=== PATIENT | male | born 1945 | race African-American/Black ===

== ENCOUNTER 2019-12-04 09:03 | Inpatient (IN) ==
--- NOTE | 2019-12-01 09:37 | EKG Report ---
Test Performed on : 12/01/2019 09:32:07 AM Test Reason : PAT Blood Pressure : / mmHG Vent. Rate : 088 BPM Atrial Rate : 088 BPM P-R Int : 146 ms QRS Dur : 076 ms QT Int : 338 ms P-R-T Axes : 049 -04 -09 degrees QTc Int : 408 ms Normal sinus rhythm. Normal ECG No previous ECGs available Confirmed by Byron Koo MD ([id number]) on 12/01/2019 6:02:40 PM
[2019-12-01 09:54] LABS: BASO# 0.05 X1000 (0.0-0.2); BASO% 0.6 % (0.0-0.8); EOS% 4.5 % (0.0-10.0); HEMATOCRIT 43.2 % (42.0-52.0); HEMOGLOBIN 13.5 g/dL (14.0-18.0); IMM GRAN# 0.06 X1000 (0.0-0.04); IMM GRAN% 0.7 % (0.0-0.5); LYMPH# 1.54 X1000 (1.2-3.4); LYMPH% 17.5 % (20.5-51.1); MCH 29.8 PG (27-31); MCHC 31.3 g/dL (33-37); MCV 95.4 FL (81-99); MONO# 0.51 X1000 (0.11-0.59); MONO% 5.8 % (1.7-9.3); MPV 10.1 FL (7.4-10.4); NEUT# 6.24 X1000 (1.4-6.5); NEUT% 70.9 % (42.2-75.2); PLT 305 X1000 (130-400); RBC 4.53 XMIL (4.7-6.1); RDW 14.1 % (11.5-14.5)
[2019-12-01 10:00] LABS: HEMOGLOBIN A1C 5.6 % (4.8-6.0)
[2019-12-01 10:47] LABS: AGAP 16; BUN 20 mg/dL (8-22); CALCIUM 10.5 mg/dL (8.8-10.2); CHLORIDE 103 mmol/L (98-107); COSMO 280; CREATININE 1.3 mg/dL (0.7-1.2); ESTIMATED GFR > 60; GLUCOSE 102 mg/dL (70-104); POTASSIUM 4.8 mmol/L (3.5-5.1); SODIUM 139 mmol/L (136-145); TCO2 20 mmol/L (25-35)
[2019-12-04] MEDS ORDERED: LR 1,000 ML ONE (09:24)
[2019-12-04] MEDS ORDERED: KEFZOL 1 GM/D5W 2 GM/100 ML IVPB ONE (09:24)
[2019-12-04] MEDS ORDERED: DIPRIVAN 1% ONE ×2 (10:12→11:16)
[2019-12-04] MEDS ORDERED: XYLOCAINE-MPF 2% ONE (10:13)
[2019-12-04] MEDS ORDERED: EPHEDRINE ONE (11:08)
[2019-12-04] MEDS ORDERED: FENTANYL ONE ×2 (12:15→12:36)
[2019-12-04] MEDS ORDERED: OFIRMEV 1000 MG/ISOTONIC SOLN 1,000 MG/100 ML BOTTLE ONE (12:31)
[2019-12-04] MEDS ORDERED: ZOFRAN ONE (12:56)
[2019-12-04] MEDS ORDERED: SENOKOT PO PRN (13:11)
[2019-12-04] MEDS ORDERED: MORPHINE IV PRN (13:11)
[2019-12-04] MEDS ORDERED: ZOFRAN IV PRN (13:11)
[2019-12-04] MEDS ORDERED: OXY IR PO PRN (13:11)
[2019-12-04] MEDS: DILAUDID ONE ×9 (13:31→15:41)
[2019-12-04] MEDS: OXY IR ONE (13:41)
--- NOTE | 2019-12-04 14:38 | OPERATIVE NOTE ---
PROCEDURE DATE: 12/04/2019 PREOPERATIVE DIAGNOSES: 1. Right subtalar dislocation. 2. 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 POSTOPERATIVE DIAGNOSES: 1. Right subtalar dislocation. 2. 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 PROCEDURE: 1. Right subtalar fusion. 2. Right multiple midfoot fusions. SURGEON: Dr. Kris Alicea ARSON INVESTIGATOR: Rosalinda Holland, nurse practitioner, who was an integral part of the case helping with all aspects of the case, helping increase our OR efficiency greatly. ANESTHESIA: General with LMA. TOURNIQUET TIME: Right around 2 hours. IMPLANTS: 1. Sionex 6.5 cannulated screws x3. 2. Sionex noncannulated bolts. DISPOSITION: To PACU, hemodynamically stable. INDICATION FOR PROCEDURE: Mr. Sanchez is a 74-year-old male who presented to my clinic recently with a chronically subluxed versus dislocated subtalar joint secondary to Charcot neuroarthropathy. I discussed with him by the position of his foot and his being at risk for ulceration we discussed performing surgical intervention. I went over with him about everything and he expressed understanding and wished to proceed. PROCEDURE: Mr. Sanchez was identified in the preoperative holding area. The right foot was marked as the correct surgical site. He was then wheeled to the operating room, placed supine on the operating table. All bony prominences were well padded. He was induced under general anesthesia. LMA was placed. Tourniquet was placed to the right thigh. Right lower extremity then prepped with chlorhexidine, gluconate scrub and then ChloraPrep, and draped in normal sterile fashion. Surgical pause was performed. We identified the correct patient, correct side, and the correct procedure. Preop antibiotics were given. Esmarch was used to exsanguinate the right lower extremity and tourniquet was inflated to 300 mmHg. We started with a sinus tarsi approach to the subtalar joint. Dissection was carried down just distal to the peroneal tendons. We easily identified the subtalar joint which was extremely synovitic and a lot of chondromalacia that was there. I denuded all the cartilage that was there and then drilled and then used osteotome to break apart the subchondral bone. I then made an incision medially from the first TMT joint back to the head of the talus. Dissection was carried down. I did not take down the tibialis anterior tendon. We went around it. We exposed the first TMT joint, MC joint and the TN joint. I used a Hintermann distractor and lamina ergonomics technician to spread those joints and was able to denude all the cartilage from each 1. We then drilled everything and I used the osteotome to break it apart so that we had nice raw bleeding bone edges opposed to each other. After we had prepared all our joints I then was able to get 2 guidewires in the calcaneus and then I reduced the subtalar joint first and got the talus back on top and then I pinned across that subtalar joint into the talus. We confirmed that everything was nice and aligned with fluoroscopic imaging. I then put two 6.5 headless compression screws in and really closed down that subtalar joint and fused it in really well. He had really good stability after that and fluoroscopic imaging showed that we had really good position even on the [place] heel view. I then turned my attention to the forefoot and made an incision over the great toe and the 2nd toe. I dissected down to the MTP joint. I then placed a wire from the first metatarsal head all the way back to the neck of the talus. I then placed another wire from the 2nd metatarsal head back into the neck of the talus as well. I was then able to get a solid screw in both the medial column and that 2nd metatarsal column as well and that stabilized things extremely well. I had good compression. I did put a little bit of bone graft and demineralized bone matrix at that medial site at the navicular to fill in just a few of those gaps that were there since the head of the talus was very deformed. I then placed 1 more screw from the posterior aspect of the calcaneus into the 2nd metatarsal base and 3rd metatarsal base area. Overall the clinical position of the foot looked really good. All the hardware looked to be in good position on fluoroscopic imaging. I was then able to close everything in a layered fashion, 0 Vicryl for the deep layer, 2-0 Vicryl for the subcutaneous and nylon on the skin. Adaptic, 4x4s, ABD, soft roll, posterior splint was applied. Tourniquet was let down. Patient had good capillary refill return to the toes. He was then wheeled from general anesthesia, moved to his own bed and taken to the PACU in stable condition. PLAN: Postoperatively, he will be nonweightbearing to the right lower extremity. He will be admitted and I will also check on him in the morning. cc: Kris Alicea MD
[2019-12-04] MEDS: KEFZOL 1 GM/D5W 1 GM/50 ML IVPB IV SCH ×2 (15:23→20:23)
[2019-12-04] MEDS: BENADRYL PO PRN ×2 (18:39→22:59)
[2019-12-04] MEDS: DILAUDID IV PRN ×2 (18:40→22:58)
[2019-12-04] MEDS: OXY IR PO PRN (20:24)
[2019-12-05] MEDS: OXY IR PO PRN ×4 (00:49→21:05)
[2019-12-05] MEDS: DILAUDID IV PRN ×6 (02:11→23:19)
[2019-12-05] MEDS: KEFZOL 1 GM/D5W 1 GM/50 ML IVPB IV SCH (04:37)
[2019-12-05] MEDS: LOVENOX SUBQ SCH ×2 (04:37→06:46)
--- NOTE | 2019-12-05 07:22 | ORTHOPAEDICS PROGRESS NOTE ---
DATE: 12/05/2019 SUBJECTIVE: Mr. Sanchez is lying in bed this morning. Overall, he seems to be doing okay. He is not in a lot of pain this morning. OBJECTIVE: Right lower extremity exam: His splint is clean, dry, and intact. He is able to move his toes up and down. He does have good sensation to the toes. That was his preop baseline. ASSESSMENT: Status post right Charcot midfoot and hindfoot reconstruction. PLAN: I think Mr. Sanchez is doing great. Internal Grinder to be involved in discharge planning. More than likely, he will be here over the weekend, and we can look at discharge on Sunday morning. He is nonweightbearing right lower extremity. He will need to get up to the bedside 3 times a day for his meals. cc: Kris Alicea MD
--- NOTE | 2019-12-05 16:33 | Diag Imaging Result Doc PS360 ---
CHEST-1 VIEW - 12/05/2019 INDICATION: rehab placement COMPARISON: None FINDINGS: There are large, benign calcified granulomas in the left lung base, and left hilum. Lung volumes are severely low. No infiltrates or edema. Heart size and pulmonary vascularity is normal. IMPRESSION: No acute disease. Electronically signed by Doug Mann 12/05/2019 4:31 PM
[2019-12-05] MEDS: OXY IR ONE (22:11)
[2019-12-05] MEDS: DILAUDID ONE (22:11)
[2019-12-06] MEDS: OXY IR PO PRN ×3 (01:40→13:42)
[2019-12-06] MEDS: DILAUDID IV PRN ×6 (03:34→21:59)
[2019-12-06] MEDS: LOVENOX SUBQ SCH (05:05)
[2019-12-06] MEDS: BENADRYL PO PRN (14:25)
[2019-12-07] MEDS: DILAUDID IV PRN ×6 (00:40→21:47)
[2019-12-07] MEDS: LOVENOX SUBQ SCH (05:23)
[2019-12-07] MEDS: OXY IR PO PRN ×4 (05:23→19:42)
[2019-12-07] MEDS: BENADRYL PO PRN ×2 (10:29→21:47)
[2019-12-08] MEDS: DILAUDID IV PRN ×5 (00:44→16:53)
[2019-12-08] MEDS ORDERED: VENTOLIN HFA INH PRN (02:23)
[2019-12-08] MEDS: OXY IR PO PRN ×4 (03:18→22:22)
[2019-12-08] MEDS: BENADRYL PO PRN (03:19)
[2019-12-08] MEDS: LOVENOX SUBQ SCH ×2 (04:02→06:41)
[2019-12-08] MEDS: WELLBUTRIN XL PO SCH ×2 (10:22→22:25)
[2019-12-08] MEDS: RAZADYNE PO SCH ×2 (10:22→22:24)
[2019-12-08] MEDS: NORVASC PO SCH (10:23)
[2019-12-08] MEDS: ASPIRIN PO SCH (10:23)
[2019-12-08] MEDS: MIRAPEX PO SCH ×3 (10:23→22:23)
[2019-12-08] MEDS: DYAZIDE PO SCH (10:23)
[2019-12-08] MEDS: LYRICA PO SCH ×2 (10:23→22:23)
[2019-12-08] MEDS: FLOMAX PO SCH (10:24)
[2019-12-08] MEDS: SENOKOT PO SCH ×2 (10:24→22:25)
[2019-12-08] MEDS: ZYLOPRIM PO SCH (10:24)
[2019-12-08] MEDS: FERROUS SULFATE PO SCH (10:24)
[2019-12-08] MEDS: PERIDEX MT SCH ×2 (10:24→22:23)
[2019-12-08] MEDS: PROTONIX PO SCH ×2 (10:24→22:24)
[2019-12-08] MEDS: FOLIC ACID PO SCH (10:24)
[2019-12-09] MEDS: DILAUDID IV PRN ×4 (06:26→21:00)
[2019-12-09] MEDS: LOVENOX SUBQ SCH (06:26)
[2019-12-09] MEDS: RAZADYNE PO SCH ×2 (10:46→20:59)
[2019-12-09] MEDS: PERIDEX MT SCH ×3 (10:46→21:09)
[2019-12-09] MEDS: DYAZIDE PO SCH (10:47)
[2019-12-09] MEDS: FERROUS SULFATE PO SCH (10:47)
[2019-12-09] MEDS: FOLIC ACID PO SCH (10:47)
[2019-12-09] MEDS: ZYLOPRIM PO SCH (10:47)
[2019-12-09] MEDS: NORVASC PO SCH (10:48)
[2019-12-09] MEDS: SENOKOT PO SCH ×2 (10:48→21:00)
[2019-12-09] MEDS: ASPIRIN PO SCH (10:48)
[2019-12-09] MEDS: PROTONIX PO SCH ×2 (10:48→21:00)
[2019-12-09] MEDS: WELLBUTRIN XL PO SCH ×2 (10:48→20:59)
[2019-12-09] MEDS: LYRICA PO SCH ×2 (10:48→20:59)
[2019-12-09] MEDS: MIRAPEX PO SCH ×3 (10:48→20:59)
[2019-12-09] MEDS: FLOMAX PO SCH (10:50)
[2019-12-09] MEDS: OXY IR PO PRN ×2 (10:58→22:50)
--- NOTE | 2019-12-09 14:16 | ORTHOPAEDICS PROGRESS NOTE ---
DATE: 12/09/2019 SUBJECTIVE: Mr. Sanchez is day 5 status post Charcot midfoot and hindfoot reconstruction. He is lying in bed and complains of pain at this time. Overall, he seems to be doing well. His splint is still in place to his right lower extremity. OBJECTIVE: Mr. Sanchez' splint to his right lower leg is clean, dry, and intact. He is able to wiggle his toes. He does have full sensation to his toes. His capillary refill is less than 2 seconds. ASSESSMENT: Status post right Charcot mid and hindfoot reconstruction. PLAN: Mr. Sanchez seems to be doing well. director of environmental services is involved and is looking for rehab placement at this time. Upon receiving a bed, he will be stable for discharge. He needs to continue to be nonweightbearing on his right lower extremity. However, he does need to get up to the bedside at least 3 times a day for his meals. Dictated by HANS Dejesus for Kris Alicea MD cc: Kris Alicea MD MTDD
[2019-12-10] MEDS: DILAUDID IV PRN ×4 (01:35→22:47)
[2019-12-10] MEDS: BENADRYL PO PRN ×2 (01:36→22:48)
[2019-12-10] MEDS: OXY IR PO PRN ×3 (03:56→15:36)
--- NOTE | 2019-12-10 07:25 | ORTHOPAEDICS PROGRESS NOTE ---
DATE: 12/10/2019 SUBJECTIVE: Mr. Sanchez is lying in bed this morning. Overall, he is feeling okay. OBJECTIVE: Right lower extremity exam, his splint is clean, dry, and intact. He is moving the toes well. He has good capillary refill to all the toes. He has numbness to the toes, which is his baseline. ASSESSMENT: Status post right hindfoot and midfoot Charcot reconstruction. PLAN: Mr. Sanchez should be discharged to [facility] today. It sounds like everything is getting set up. He will need to see me in about a week in clinic. He will remain nonweightbearing to the right lower extremity. cc: Kris Alicea MD
[2019-12-10] MEDS ORDERED: CALMOSEPTINE OINTMENT TOP PRN (07:38)
[2019-12-10] MEDS: RAZADYNE PO SCH ×2 (08:21→22:49)
[2019-12-10] MEDS: DYAZIDE PO SCH (08:22)
[2019-12-10] MEDS: LEXAPRO PO SCH (08:22)
[2019-12-10] MEDS: FLOMAX PO SCH (08:23)
[2019-12-10] MEDS: ZYLOPRIM PO SCH (08:23)
[2019-12-10] MEDS: MIRAPEX PO SCH ×3 (08:23→22:49)
[2019-12-10] MEDS: NORVASC PO SCH (08:23)
[2019-12-10] MEDS: FOLIC ACID PO SCH (08:24)
[2019-12-10] MEDS: SENOKOT PO SCH ×2 (08:24→22:49)
[2019-12-10] MEDS: WELLBUTRIN XL PO SCH ×2 (08:24→22:49)
[2019-12-10] MEDS: ASPIRIN PO SCH (08:24)
[2019-12-10] MEDS: PERIDEX MT SCH ×2 (08:24→22:49)
[2019-12-10] MEDS: FERROUS SULFATE PO SCH (08:24)
[2019-12-10] MEDS: PROTONIX PO SCH ×2 (08:25→22:49)
[2019-12-10] MEDS: LYRICA PO SCH ×2 (08:32→22:48)
[2019-12-10] MEDS: LOVENOX SUBQ SCH (09:16)
[2019-12-10] MEDS: LOTRIMIN 1% CREAM TOP SCH ×2 (09:16→22:50)
[2019-12-11] MEDS: BENADRYL PO PRN (02:21)
[2019-12-11] MEDS: DILAUDID IV PRN ×3 (02:21→11:06)
[2019-12-11] MEDS: OXY IR PO PRN ×2 (03:53→13:22)
[2019-12-11] MEDS: WELLBUTRIN XL PO SCH (08:26)
[2019-12-11] MEDS: FLOMAX PO SCH (08:26)
[2019-12-11] MEDS: LYRICA PO SCH (08:26)
[2019-12-11] MEDS: NORVASC PO SCH (08:26)
[2019-12-11] MEDS: MIRAPEX PO SCH (08:27)
[2019-12-11] MEDS: LOVENOX SUBQ SCH (08:27)
[2019-12-11] MEDS: DYAZIDE PO SCH (08:27)
[2019-12-11] MEDS: PROTONIX PO SCH (08:27)
[2019-12-11] MEDS: ZYLOPRIM PO SCH (08:27)
[2019-12-11] MEDS: ASPIRIN PO SCH (08:27)
[2019-12-11] MEDS: PERIDEX MT SCH (08:27)
[2019-12-11] MEDS: SENOKOT PO SCH (08:27)
[2019-12-11] MEDS: RAZADYNE PO SCH (08:27)
[2019-12-11] MEDS: FOLIC ACID PO SCH (08:27)
[2019-12-11] MEDS: FERROUS SULFATE PO SCH (08:27)
[2019-12-11] MEDS: LEXAPRO PO SCH ×3 (08:27→10:03)
[2019-12-11] MEDS: LOTRIMIN 1% CREAM TOP SCH (09:39)
[2019-12-11 11:31] VITALS: BP 114/65
--- NOTE | 2019-12-12 00:09 | DISCHARGE SUMMARY ---
ADMISSION DATE: 12/04/2019 DISCHARGE DATE: 12/11/2019 ADMITTING DIAGNOSES: 1. Right subtalar dislocation. 2. Right Charcot neuropathy. 3. Type 2 diabetes mellitus with peripheral neuropathy. DISCHARGE DIAGNOSES: 1. Right subtalar dislocation. 2. Right Charcot neuropathy. 3. Type 2 diabetes mellitus with peripheral neuropathy. PROCEDURES: On 12/04/2019, Dr. Alicea performed a right subtalar fusion with multiple midfoot fusions. HOSPITAL COURSE: Mr. Sanchez is a 74-year-old male who presented to Dr. Alicea's clinic with a chronically subluxed versus dislocated subtalar joint secondary to Charcot neuropathy. Dr. Alicea discussed with him the position of the foot and that he was at high risk for ulceration. They began discussing surgical intervention. Mr. Sanchez saw his primary care provider and kind of got a preoperative workup done. He was approved for surgery and he and his family wished to proceed with surgical intervention. He was taken to the operating room on 12/04/2019. Satisfactory anesthesia was obtained and he tolerated the procedure well. He was transferred to the recovery room. After a satisfactory recovery, he was transferred to [address] [place] [address]. He has had a pretty uneventful postoperative course. He has had trouble mobilizing postoperatively. He is nonweightbearing to the right lower extremity. They have been following his sugars, which have been controlled. There is some discussion of him going to a rehab to continue to work on physical therapy mobilization. However, it looks like the plan is for him to go home with home health now. He does have a good supportive family who is in the area. At this time, he is ready for discharge. VITAL SIGNS: Temperature is 98.5 degrees, pulse is 79, respirations 16, blood pressure 114/65. He is 95% on room air. DISCHARGE MEDICATIONS: Ventolin 2 puffs every 4 to 6 hours as needed, Allopurinol 300 mg p.o. daily, Norvasc 10 mg p.o. daily, aspirin 325 mg twice a day, Wellbutrin 150 mg p.o. b.i.d., Lexapro 10 mg p.o. daily, folic acid 1 mg p.o. daily, Razadyne 12 mg p.o. b.i.d., Protonix 40 mg p.o. b.i.d., Lyrica 100 mg p.o. b.i.d., Mirapex 0.5 mg p.o. t.i.d., Flomax 0.4 mg p.o. daily, Senokot 1 p.o. b.i.d., Dyazide 1 p.o. each daily, Percocet 5 mg p.o. every 4 to 6 hours as needed for pain. DISCHARGE DISPOSITION: Mr. Sanchez will be discharged home with home health. He also has supportive family that is going to be by to check on him. He will continue to be nonweightbearing on this right lower extremity. He is currently in a posterior splint. We discussed signs of postoperative infection and DVT. We have him on aspirin twice a day for DVT prophylaxis. We have him on Percocet for pain control. He is going to follow up in the office in [address] Alicea. We will take down the splint and reassess everything. He has about 8 weeks of nonweightbearing before we move to a weightbearing boot. We will likely cast him for a good portion of that time. Should he have any questions or concerns, he is welcome to call the office. Dictated by HANS Shelton for Kris Alicea MD cc: HANS Shelton MD
== END 2019-12-11 14:08 | disposition home health service (06) | DRG 983 ==
LOC: SURHOLD 09:03 → 4N 14:25
PROVIDERS: ADMIT Orthopaedic Surgery; ATTEND Orthopaedic Surgery